=== PATIENT | male | born 1985 | race Two or more races ===

== ENCOUNTER 2025-07-20 15:48 | Inpatient (IN) | payer OTHER ==
[2025-07-20 15:30] VITALS: BP 108/79; PULSE 88; RESP 18; TEMP 98.2; O2SAT 100
[2025-07-20] MEDS ORDERED: ALBUTEROL SULFATE 2.5 MG/0.5 ML NEB SOLUTION NEB PRN (16:00)
[2025-07-20] MEDS ORDERED: BISACODYL 10 MG RECTAL RECTAL SUPPOSITORY PR PRN (16:00)
[2025-07-20] MEDS ORDERED: ONDANSETRON HCL 4 MG/2 ML VIAL IVP PRN (16:00)
[2025-07-20] MEDS ORDERED: MORPHINE SULFATE 4 MG/ML SYRINGE IVP PRN (16:00)
[2025-07-20] MEDS ORDERED: MAGNESIUM HYDROXIDE SUSPENSION 30 ML UDCUP PO PRN (16:00)
[2025-07-20] MEDS ORDERED: IPRATROPIUM BROMIDE 0.5 MG/2.5 ML NEB SOLUTION NEB PRN (16:00)
[2025-07-20] MEDS ORDERED: ACETAMINOPHEN 325 MG TABLET PO PRN (16:00)
[2025-07-20] MEDS ORDERED: ATOR40TA28 PO (17:49)
[2025-07-20] MEDS ORDERED: DICL100G60 TP (17:49)
[2025-07-20] MEDS ORDERED: PRED-549 PO (17:49)
[2025-07-20] MEDS ORDERED: TACR1CAP12 PO (17:49)
[2025-07-20] MEDS ORDERED: MULT-14 PO (17:49)
[2025-07-20] MEDS ORDERED: BUME1TAB50 PO (17:49)
[2025-07-20] MEDS ORDERED: TRAZ-252 PO (17:49)
[2025-07-20] MEDS ORDERED: FERR325T27 PO (17:49)
[2025-07-20] MEDS ORDERED: ONDA-104 PO (17:49)
[2025-07-20] MEDS ORDERED: AMLO2.5T96 PO (17:49)
[2025-07-20] MEDS ORDERED: PRED-554 PO (17:49)
[2025-07-20] MEDS ORDERED: PREDAOS OD (17:49)
[2025-07-20] MEDS ORDERED: DORZ1DRO7 OU (17:49)
[2025-07-20] MEDS ORDERED: MYCO250C27 PO (17:49)
[2025-07-20] MEDS ORDERED: HYDR25TA83 PO (17:49)
[2025-07-20] MEDS ORDERED: GABA-1181 PO (17:49)
[2025-07-20] MEDS ORDERED: XALA2.5OS OU (17:49)
[2025-07-20] MEDS ORDERED: ASPI-1450 PO (17:49)
[2025-07-20 19:46] VITALS: BP 100/72; PULSE 90; RESP 18; TEMP 97.7; O2SAT 96
[2025-07-20] MEDS: GABAPENTIN 300 MG CAPSULE PO SCH (21:47)
[2025-07-20] MEDS: DOCUSATE SODIUM 100 MG CAPSULE PO SCH (21:47)
[2025-07-20] MEDS: DORZOLAMIDE/TIMOLOL 2-0.5% [22.3-6.8MG/ML] 10 ML OPHTHALMIC SOLUTION OU SCH (21:48)
[2025-07-20] MEDS: TACROLIMUS 1 MG CAPSULE PO SCH (21:48)
[2025-07-20] MEDS: HEPARIN SODIUM,PORCINE 5,000 UNITS/ML VIAL SQ SCH (23:49)
[2025-07-21 04:17] VITALS: BP 104/74; PULSE 86; RESP 18; TEMP 97.5; O2SAT 100
[2025-07-21 06:22] LABS: PLATELET COUNT (AUTO) 274 K/uL (150-450); RED BLOOD CELL COUNT(AUTO) 4.61 MIL/uL (4.50-5.90); RED CELL DISTRIBUTION WIDTH 15.9 % (11.5-14.5); WHITE BLOOD COUNT (AUTO) 8.7 K/uL (4.5-11.0)
[2025-07-21 06:41] LABS: CALCIUM, TOTAL 8.6 mg/dL (8.8-10.5); CREATININE 1.07 mg/dL (0.60-1.30); GLOMERULAR FILTR. RATE CALC > 60 mL/min (>60); GLUCOSE,RANDOM 125 mg/dL (70-110); SODIUM SERUM 134 mmol/L (136-145); UREA NITROGEN, BLOOD 25 mg/dL (7-18)
[2025-07-21 07:26] VITALS: BP 122/71; PULSE 96; RESP 18; TEMP 97.7; O2SAT 100
[2025-07-21] MEDS: FERROUS SULFATE 325 MG EC TABLET PO SCH (08:36)
[2025-07-21] MEDS: ATORVASTATIN CALCIUM 40 MG TABLET PO SCH (08:37)
[2025-07-21] MEDS: PANTOPRAZOLE SODIUM 40 MG DR TABLET PO SCH (08:37)
[2025-07-21] MEDS: BUMETANIDE 1 MG TABLET PO SCH (08:38)
[2025-07-21] MEDS: PrednisoLONE ACETATE 1% 5 ML OPHTHALMIC SUSPENSION OD SCH (08:45)
[2025-07-21 15:35] VITALS: BP 107/70; PULSE 96; RESP 17; TEMP 97.7; O2SAT 99
[2025-07-21 17:11] LABS: APPEARANCE,URINE CLEAR (CLEAR); GLUCOSE, URINE (UA) NEGATIVE (NEGATIVE); LEUKOCYTE ESTERASE ,URINE NEGATIVE (NEGATIVE); NITRATE,URINE NEGATIVE (NEGATIVE); OCCULT BLOOD,URINE NEGATIVE (NEGATIVE); SPECIFIC GRAVITIY, URINE 1.006 (1.003-1.030)
[2025-07-21 17:27] LABS: SQUAMOUS EPITHELIAL CELL,UR Rare /LPF (None Seen)
[2025-07-21 19:51] VITALS: BP 98/67; PULSE 97; RESP 18; TEMP 98.2; O2SAT 100
[2025-07-21] MEDS: BRIMONIDINE TARTRATE 0.2% 5 ML OPHTHALMIC SOLUTION OU SCH (20:56)
[2025-07-21] MEDS ORDERED: DORZOLAMIDE HCL 2% 10 ML OPHTHALMIC SOLUTION OU SCH (21:00)
[2025-07-22] MEDS: ZOLPIDEM TARTRATE 5 MG TABLET PO PRN (00:50)
[2025-07-22 05:00] VITALS: BP 115/79; PULSE 85; RESP 18; TEMP 97.9; O2SAT 100
[2025-07-22 06:46] LABS: CALCIUM, TOTAL 8.6 mg/dL (8.8-10.5); CREATININE 1.32 mg/dL (0.60-1.30); GLOMERULAR FILTR. RATE CALC > 60 mL/min (>60); GLUCOSE,RANDOM 93 mg/dL (70-110); SODIUM SERUM 131 mmol/L (136-145); UREA NITROGEN, BLOOD 26 mg/dL (7-18)
[2025-07-22 09:10] VITALS: BP 108/78; PULSE 89; RESP 18; TEMP 98.2; O2SAT 100
[2025-07-22] MEDS: SODIUM CHLORIDE 0.9% 1,000 ML IV ONE (10:40)
[2025-07-22] MEDS: HYDROCODONE/ACETAMINOPHEN 5-325 MG TABLET PO PRN (14:58)
[2025-07-22 15:22] VITALS: BP 117/79; PULSE 95; RESP 18; TEMP 98.6; O2SAT 96
[2025-07-22 20:14] VITALS: BP 105/70; PULSE 87; RESP 18; TEMP 98.2; O2SAT 100
[2025-07-23 06:19] VITALS: BP 127/85; PULSE 95; RESP 18; TEMP 98.1; O2SAT 100
[2025-07-23 07:06] LABS: CALCIUM, TOTAL 8.8 mg/dL (8.8-10.5); CREATININE 1.24 mg/dL (0.60-1.30); GLOMERULAR FILTR. RATE CALC > 60 mL/min (>60); GLUCOSE,RANDOM 97 mg/dL (70-110); SODIUM SERUM 137 mmol/L (136-145); UREA NITROGEN, BLOOD 32 mg/dL (7-18)
[2025-07-23 08:05] VITALS: BP 125/82; PULSE 91; RESP 20; TEMP 99; O2SAT 100
[2025-07-23 15:21] VITALS: BP 125/83; PULSE 93; RESP 20; TEMP 99; O2SAT 100
[2025-07-23 20:22] VITALS: BP 111/83; PULSE 97; RESP 19; TEMP 98.4; O2SAT 99
[2025-07-24 04:10] VITALS: BP 119/72; PULSE 86; RESP 18; TEMP 98.2; O2SAT 100
[2025-07-24 08:37] VITALS: BP 117/77; PULSE 94; RESP 18; TEMP 98.4; O2SAT 100
[2025-07-24 16:04] VITALS: BP 123/81; PULSE 80; RESP 18; TEMP 97.5; O2SAT 100
[2025-07-24 17:17] LABS: COVID AG,FIA SOURCE NASAL SWAB
[2025-07-24 17:33] LABS: SARS-COV2 (COVID) ANTIGEN,FIA Negative (Negative)
[2025-07-24 19:12] VITALS: BP 130/91; PULSE 90; RESP 18; TEMP 98.4; O2SAT 100
[2025-07-25 04:14] VITALS: BP 112/75; PULSE 81; RESP 18; TEMP 97.8; O2SAT 99
[2025-07-25 08:00] VITALS: BP 127/86; PULSE 88; RESP 20; TEMP 98.4; O2SAT 100
[2025-07-25 16:00] VITALS: BP 137/89; PULSE 99; RESP 20; TEMP 97.9; O2SAT 100
[2025-07-25 19:12] LABS: COVID AG,FIA SOURCE NASAL SWAB
[2025-07-25 19:36] LABS: SARS-COV2 (COVID) ANTIGEN,FIA Negative (Negative)
[2025-07-25 20:12] VITALS: BP 131/86; PULSE 99; RESP 18; TEMP 98.8; O2SAT 100
== END 2025-07-25 21:58 | DRG 699 ==
LOC: 6S 15:59 → 4E 07-22 19:19
PROVIDERS: ADMIT Internal Medicine; ATTEND Internal Medicine
PROC: GZ56ZZZ Individual Psychotherapy, Supportive (ICD-10-PCS; principal; 2025-07-24)
DX: T86.12 Kidney transplant failure (principal); E87.1 Hypo-osmolality and hyponatremia; N17.8 Other acute kidney failure; I42.9 Cardiomyopathy, unspecified; F33.9 Major depressive disorder, recurrent, unspecified; I69.354 Hemiplegia and hemiparesis following cerebral infarction affecting left non-dominant side; Z94.1 Heart transplant status; R44.0 Auditory hallucinations; Z94.0 Kidney transplant status; E78.5 Hyperlipidemia, unspecified; Z20.822 Contact with and (suspected) exposure to COVID-19; E11.22 Type 2 diabetes mellitus with diabetic chronic kidney disease; H54.8 Legal blindness, as defined in USA; I12.9 Hypertensive chronic kidney disease with stage 1 through stage 4 chronic kidney disease, or unspecified chronic kidney disease; N18.9 Chronic kidney disease, unspecified; Z79.624 Long term (current) use of inhibitors of nucleotide synthesis; Z88.8 Allergy status to other drugs, medicaments and biological substances; Z79.82 Long term (current) use of aspirin; Z94.7 Corneal transplant status; Z79.899 Other long term (current) drug therapy
CPT/HCPCS: 76776; 80048; 80197; 81001; 85025; 97116; 97162; 97530; G0378; J1644; J7030; J7507; J7517

== ENCOUNTER 2025-07-25 12:42 | Inpatient (IN) | payer OTHER, MEDICAID ==
[~2025-07-25] VITALS: Ht 172.7 cm; Wt 75.3 kg
[~2025-07-25 12:42] MED LIST: AMLO2.5T96 PO; ASPI-1450 PO; ATOR40TA28 PO; BUME1TAB50 PO; DICL100G60 TP; DORZ1DRO7 OU; FERR325T27 PO; GABA-1181 PO; HYDR25TA83 PO; MULT-14 PO; MYCO250C27 PO; ONDA-104 PO; PRED-549 PO; PRED-554 PO; PREDAOS OD; TACR1CAP12 PO; TRAZ-252 PO; XALA2.5OS OU
[2025-07-25] MEDS ORDERED: PROMETHAZINE HCL 25 MG TABLET PO PRN (22:15)
[2025-07-25] MEDS ORDERED: MELATONIN 5 MG TABLET PO PRN (22:15)
[2025-07-25] MEDS ORDERED: LOPERAMIDE HCL 2 MG CAPSULE PO PRN (22:15)
[2025-07-25] MEDS ORDERED: GuaiFENesin/D-METHORPHAN [SUGAR-FREE] 200-20MG/10 ML SYRUP UDCUP PO PRN (22:15)
[2025-07-25] MEDS ORDERED: MAG HYDROX/ALUMINUM HYD/SIMETH ES 30 ML SUSPENSION UDCUP PO PRN (22:15)
[2025-07-25] MEDS ORDERED: ACETAMINOPHEN 325 MG TABLET PO PRN (22:15)
[2025-07-25] MEDS ORDERED: MAGNESIUM HYDROXIDE SUSPENSION 30 ML UDCUP PO PRN (22:15)
[2025-07-25 23:27] VITALS: BP 114/83; PULSE 79; RESP 18; TEMP 98.3; O2SAT 97
[2025-07-26] MEDS ORDERED: INFLUENZA VIRUS VACCINE TVS (6MO+) 2025-26/PF 45 MCG/0.5 ML SYRINGE IM. ONE (03:00)
[2025-07-26 06:55] LABS: PLATELET COUNT (AUTO) 274 K/uL (150-450); RED BLOOD CELL COUNT(AUTO) 4.31 MIL/uL (4.50-5.90); RED CELL DISTRIBUTION WIDTH 15.8 % (11.5-14.5); WHITE BLOOD COUNT (AUTO) 6.2 K/uL (4.5-11.0)
[2025-07-26 07:17] LABS: ASPARTATE AMINOTRANSFERASE 29 U/L (15-37); CALCIUM, TOTAL 9.0 mg/dL (8.8-10.5); CHOL/HDL RATIO 2.5 (4.2-7.3); CREATININE 1.03 mg/dL (0.60-1.30); GLOMERULAR FILTR. RATE CALC > 60 mL/min (>60); GLUCOSE,RANDOM 106 mg/dL (70-110); LDL CHOL (CALC.) 63 mg/dL (0-130); SODIUM SERUM 136 mmol/L (136-145); TOTAL PROTEIN, SERUM 7.8 g/dL (6.4-8.2); UREA NITROGEN, BLOOD 17 mg/dL (7-18)
[2025-07-26] MEDS ORDERED: ONDANSETRON 4 MG RAPDIS TABLET PO PRN (07:45)
[2025-07-26 08:37] VITALS: BP 129/90; PULSE 103; RESP 18; TEMP 97.5; O2SAT 100
[2025-07-26] MEDS: THIAMINE 100 MG TABLET PO SCH (08:41)
[2025-07-26] MEDS: MULTIVITAMINS WITH MINERALS, THERAPEUTIC TABLET PO SCH (08:41)
[2025-07-26] MEDS: FOLIC ACID 1 MG TABLET PO SCH (08:42)
[2025-07-26] MEDS: PrednisoLONE ACETATE 1% 5 ML OPHTHALMIC SUSPENSION OD SCH (08:45)
[2025-07-26] MEDS: DORZOLAMIDE/TIMOLOL 2-0.5% [22.3-6.8MG/ML] 10 ML OPHTHALMIC SOLUTION OU SCH (08:46)
[2025-07-26] MEDS: ASPIRIN 81 MG CHEWABLE TABLET PO SCH (08:48)
[2025-07-26] MEDS: ATORVASTATIN CALCIUM 40 MG TABLET PO SCH (08:49)
[2025-07-26] MEDS ORDERED: MULTIVITAMINS WITH MINERALS, THERAPEUTIC TABLET PO SCH (09:00)
[2025-07-26] MEDS: TACROLIMUS 1 MG CAPSULE PO SCH (09:16)
[2025-07-26] MEDS: BUMETANIDE 1 MG TABLET PO SCH (09:16)
[2025-07-26] MEDS: LATANOPROST 0.005% 2.5 ML OPHTHALMIC SOLUTION OU SCH (20:03)
[2025-07-26 21:53] VITALS: BP 119/74; PULSE 86; RESP 19; TEMP 98.1; O2SAT 100
[2025-07-27] MEDS: FERROUS SULFATE 325 MG EC TABLET PO SCH (06:36)
[2025-07-27 09:17] VITALS: BP 134/86; PULSE 113; RESP 18; TEMP 97.8; O2SAT 100
[2025-07-27 22:48] VITALS: BP 109/73; PULSE 108; RESP 18; TEMP 98.2; O2SAT 100
[2025-07-28 09:04] VITALS: BP 134/85; PULSE 97; RESP 18; TEMP 97.7; O2SAT 99
[2025-07-28 21:47] VITALS: BP 105/63; PULSE 92; RESP 18; TEMP 98.1; O2SAT 100
[2025-07-29 10:33] VITALS: BP 100/63; PULSE 104; RESP 18; TEMP 97.8; O2SAT 99
[2025-07-29 20:15] VITALS: BP 128/90; PULSE 104; RESP 18; TEMP 98.6; O2SAT 98
[2025-07-30 10:27] VITALS: BP 101/76; PULSE 91; RESP 17; TEMP 98.1; O2SAT 100
[2025-07-30 20:58] VITALS: BP 119/80; PULSE 90; RESP 16; TEMP 96.8; O2SAT 99
[2025-07-31 08:19] LABS: PLATELET COUNT (AUTO) 262 K/uL (150-450); RED BLOOD CELL COUNT(AUTO) 4.75 MIL/uL (4.50-5.90); RED CELL DISTRIBUTION WIDTH 16.3 % (11.5-14.5); WHITE BLOOD COUNT (AUTO) 8.1 K/uL (4.5-11.0)
[2025-07-31 08:26] LABS: CALCIUM, TOTAL 9.0 mg/dL (8.8-10.5); CREATININE 2.05 mg/dL (0.60-1.30); GLOMERULAR FILTR. RATE CALC 37.0 mL/min (>60); GLUCOSE,RANDOM 95.0 mg/dL (70-110); SODIUM SERUM 136.0 mmol/L (136-145); UREA NITROGEN, BLOOD 44.0 mg/dL (7-18)
[2025-07-31 09:15] VITALS: BP 102/72; PULSE 92; RESP 18; TEMP 97.8; O2SAT 97
[2025-07-31 20:56] VITALS: BP 94/56; PULSE 97; RESP 18; TEMP 97.5; O2SAT 99
[2025-08-01 07:19] LABS: CALCIUM, TOTAL 9.1 mg/dL (8.8-10.5); CREATININE 2.17 mg/dL (0.60-1.30); GLOMERULAR FILTR. RATE CALC 34.0 mL/min (>60); GLUCOSE,RANDOM 95.0 mg/dL (70-110); SODIUM SERUM 133.0 mmol/L (136-145); UREA NITROGEN, BLOOD 52.0 mg/dL (7-18)
[2025-08-01 07:24] LABS: PHOSPHORUS 4.4 mg/dL (2.5-4.9)
[2025-08-01 09:52] VITALS: RESP 18
[2025-08-01 20:17] VITALS: BP 114/79; PULSE 64; RESP 18; TEMP 97.9; O2SAT 95
[2025-08-01] MEDS: LURASIDONE HCL 40 MG TABLET PO SCH (21:18)
[2025-08-02 09:17] LABS: CALCIUM, TOTAL 9.1 mg/dL (8.8-10.5); CREATININE 3.15 mg/dL (0.60-1.30); GLOMERULAR FILTR. RATE CALC 22.0 mL/min (>60); GLUCOSE,RANDOM 104.0 mg/dL (70-110); SODIUM SERUM 135.0 mmol/L (136-145); UREA NITROGEN, BLOOD 62.0 mg/dL (7-18)
[2025-08-02 13:23] VITALS: BP 98/71; PULSE 100; RESP 18; TEMP 97.7; O2SAT 100
[2025-08-02] MEDS ORDERED: MODA100T65 PO (13:57)
[2025-08-02] MEDS ORDERED: MELA5TAB40 PO (13:57)
[2025-08-02] MEDS ORDERED: QUET25TA36 PO (13:57)
[2025-08-02] MEDS ORDERED: LURA40TA2 PO (13:57)
[2025-08-02] MEDS ORDERED: PARO10TA71 PO (13:57)
[2025-08-02 20:30] VITALS: BP 110/67; PULSE 102; RESP 18; TEMP 98.5; O2SAT 100
[2025-08-03 00:30] VITALS: BP 116/74; PULSE 104; RESP 19; TEMP 98.5; O2SAT 98
[2025-08-04] MEDS ORDERED: DORZ10DR10 OU (12:05)
[2025-08-04] MEDS ORDERED: BRIM5DRO9 OU (12:05)
== END 2025-08-03 00:45 | disposition short-term general hospital (02) | DRG 885 ==
LOC: 3EI 21:41
PROVIDERS: ADMIT Psychiatry & Neurology Psychiatry; ATTEND Psychiatry & Neurology Psychiatry
PROC: GZHZZZZ Group Psychotherapy (ICD-10-PCS; principal; 2025-07-25)
PROC: GZ58ZZZ Individual Psychotherapy, Cognitive-Behavioral (ICD-10-PCS; 2025-07-25)
PROC: GZ56ZZZ Individual Psychotherapy, Supportive (ICD-10-PCS; 2025-07-25)
DX: F33.2 Major depressive disorder, recurrent severe without psychotic features (principal); I69.354 Hemiplegia and hemiparesis following cerebral infarction affecting left non-dominant side; I42.0 Dilated cardiomyopathy; N25.81 Secondary hyperparathyroidism of renal origin; Z94.1 Heart transplant status; Z59.00 Homelessness unspecified; R45.851 Suicidal ideations; I10 Essential (primary) hypertension; E78.5 Hyperlipidemia, unspecified; E11.9 Type 2 diabetes mellitus without complications; G35.D Multiple sclerosis, unspecified; H54.8 Legal blindness, as defined in USA; F10.20 Alcohol dependence, uncomplicated; F41.0 Panic disorder [episodic paroxysmal anxiety]; F41.1 Generalized anxiety disorder; Z63.72 Alcoholism and drug addiction in family; Z79.60 Long term (current) use of unspecified immunomodulators and immunosuppressants; Z81.1 Family history of alcohol abuse and dependence; Z94.7 Corneal transplant status
CPT/HCPCS: 76776; 80048; 80053; 80061; 82140; 83036; 83735; 84100; 84439; 84443; 85025; 86592; 87081; J7507; J7517

== ENCOUNTER 2025-08-03 00:45 | Inpatient (IN) | payer OTHER ==
[~2025-08-03] VITALS: Ht 165.1 cm; Wt 76.6 kg
[~2025-08-03 00:45] MED LIST changes: +LURA40TA2 PO; +MELA5TAB40 PO; +MODA100T65 PO; +PARO10TA71 PO; +QUET25TA36 PO
[2025-08-03 00:50] VITALS: BP 116/80; PULSE 99; RESP 19; TEMP 98.2; O2SAT 99
[2025-08-03 04:00] VITALS: BP 115/79; PULSE 99; RESP 18; TEMP 98; O2SAT 99
[2025-08-03 06:49] LABS: PLATELET COUNT (AUTO) 265 K/uL (150-450); RED BLOOD CELL COUNT(AUTO) 4.85 MIL/uL (4.50-5.90); RED CELL DISTRIBUTION WIDTH 16.3 % (11.5-14.5); WHITE BLOOD COUNT (AUTO) 9.9 K/uL (4.5-11.0)
[2025-08-03 06:59] LABS: CALCIUM, TOTAL 9.1 mg/dL (8.8-10.5); CREATININE 2.67 mg/dL (0.60-1.30); GLOMERULAR FILTR. RATE CALC 27.0 mL/min (>60); GLUCOSE,RANDOM 93.0 mg/dL (70-110); SODIUM SERUM 137.0 mmol/L (136-145); UREA NITROGEN, BLOOD 70.0 mg/dL (7-18)
[2025-08-03] MEDS: SODIUM CHLORIDE 0.9% 1,000 ML IV ONE ×2 (07:58)
[2025-08-03] MEDS ORDERED: SODIUM CHLORIDE 0.9% 500 ML IV ONE (11:38)
[2025-08-03] MEDS: POTASSIUM CHL 10 MEQ/WATER 50 ML IV SCH (11:59)
[2025-08-03] MEDS: TACROLIMUS 1 MG CAPSULE PO SCH (12:05)
[2025-08-03 12:42] VITALS: BP 127/89; PULSE 97; RESP 18; TEMP 98.2; O2SAT 98
[2025-08-03] MEDS: DORZOLAMIDE/TIMOLOL 2-0.5% [22.3-6.8MG/ML] 10 ML OPHTHALMIC SOLUTION OU SCH (15:26)
[2025-08-03] MEDS: PrednisoLONE ACETATE 1% 5 ML OPHTHALMIC SUSPENSION OD SCH (15:26)
[2025-08-03] MEDS: BRIMONIDINE TARTRATE 0.2% 5 ML OPHTHALMIC SOLUTION OU SCH (15:28)
[2025-08-03 16:44] VITALS: BP 116/82; PULSE 91; RESP 18; TEMP 97.9; O2SAT 100
[2025-08-03 20:02] VITALS: BP 116/78; PULSE 92; RESP 18; TEMP 98.1; O2SAT 100
[2025-08-03] MEDS: GABAPENTIN 300 MG CAPSULE PO SCH (20:43)
[2025-08-03] MEDS: LATANOPROST 0.005% 2.5 ML OPHTHALMIC SOLUTION OU SCH (20:44)
[2025-08-04 04:11] VITALS: BP 129/85; PULSE 101; RESP 18; TEMP 97.9; O2SAT 98
[2025-08-04 06:33] LABS: PLATELET COUNT (AUTO) 274 K/uL (150-450); RED BLOOD CELL COUNT(AUTO) 4.95 MIL/uL (4.50-5.90); RED CELL DISTRIBUTION WIDTH 16.4 % (11.5-14.5); WHITE BLOOD COUNT (AUTO) 9.3 K/uL (4.5-11.0)
[2025-08-04 06:56] LABS: CALCIUM, TOTAL 9.3 mg/dL (8.8-10.5); CREATININE 1.8 mg/dL (0.60-1.30); GLOMERULAR FILTR. RATE CALC 42.0 mL/min (>60); GLUCOSE,RANDOM 105.0 mg/dL (70-110); SODIUM SERUM 135.0 mmol/L (136-145); UREA NITROGEN, BLOOD 58.0 mg/dL (7-18)
[2025-08-04 07:00] LABS: PHOSPHORUS 2.5 mg/dL (2.5-4.9)
[2025-08-04] MEDS: MULTIVITAMINS, THERAPEUTIC TABLET PO SCH (08:38)
[2025-08-04] MEDS: ASPIRIN 81 MG CHEWABLE TABLET PO SCH (08:38)
[2025-08-04] MEDS: ATORVASTATIN CALCIUM 40 MG TABLET PO SCH (08:39)
[2025-08-04] MEDS: FERROUS SULFATE 325 MG EC TABLET PO SCH (08:39)
[2025-08-04 09:34] LABS: APPEARANCE,URINE CLEAR (CLEAR); GLUCOSE, URINE (UA) NEGATIVE (NEGATIVE); LEUKOCYTE ESTERASE ,URINE NEGATIVE (NEGATIVE); NITRATE,URINE NEGATIVE (NEGATIVE); OCCULT BLOOD,URINE NEGATIVE (NEGATIVE); SPECIFIC GRAVITIY, URINE 1.024 (1.003-1.030)
[2025-08-04] MEDS ORDERED: SODIUM CHLORIDE 0.9% 1,000 ML ONE (11:49)
[2025-08-04] MEDS: SODIUM CHLORIDE 0.9% 1,000 ML IV SCH (12:00)
[2025-08-04] MEDS ORDERED: BRIM5DRO9 OU (12:05)
[2025-08-04] MEDS ORDERED: DORZ10DR10 OU (12:05)
[2025-08-04 17:33] VITALS: BP 134/99; PULSE 95; RESP 18; TEMP 98.1; O2SAT 99
[2025-08-04 20:00] VITALS: BP 120/87; PULSE 106; RESP 18; TEMP 97.5; O2SAT 100
[2025-08-05] MEDS: LORazepam 2 MG/ML VIAL IVP PRN (03:05)
[2025-08-05 04:00] VITALS: BP 117/82; PULSE 98; RESP 18; TEMP 98.1; O2SAT 98
[2025-08-05 07:42] VITALS: BP 111/78; PULSE 81; RESP 18; TEMP 97.2; O2SAT 100
[2025-08-05 09:31] LABS: PLATELET COUNT (AUTO) 228 K/uL (150-450); RED BLOOD CELL COUNT(AUTO) 4.48 MIL/uL (4.50-5.90); RED CELL DISTRIBUTION WIDTH 16.2 % (11.5-14.5); WHITE BLOOD COUNT (AUTO) 6.7 K/uL (4.5-11.0)
[2025-08-05 09:39] LABS: CALCIUM, TOTAL 8.8 mg/dL (8.8-10.5); CREATININE 1.52 mg/dL (0.60-1.30); GLOMERULAR FILTR. RATE CALC 52.0 mL/min (>60); GLUCOSE,RANDOM 112.0 mg/dL (70-110); SODIUM SERUM 140.0 mmol/L (136-145); UREA NITROGEN, BLOOD 45.0 mg/dL (7-18)
[2025-08-05 09:43] LABS: PHOSPHORUS 2.6 mg/dL (2.5-4.9)
[2025-08-05] MEDS: POTASSIUM CHLORIDE 20 MEQ ER TABLET PO ONE (10:53)
[2025-08-05 15:21] VITALS: BP 118/79; PULSE 104; RESP 18; TEMP 98.4; O2SAT 95
[2025-08-05 19:52] VITALS: BP 133/87; PULSE 91; RESP 18; TEMP 98.1; O2SAT 98
[2025-08-06 04:34] VITALS: BP 111/93; PULSE 91; RESP 18; TEMP 97.5; O2SAT 100
[2025-08-06 08:20] VITALS: BP 114/81; PULSE 82; RESP 18; TEMP 96.9; O2SAT 100
[2025-08-06 08:28] LABS: PLATELET COUNT (AUTO) 196 K/uL (150-450); RED BLOOD CELL COUNT(AUTO) 4.37 MIL/uL (4.50-5.90); RED CELL DISTRIBUTION WIDTH 16.4 % (11.5-14.5); WHITE BLOOD COUNT (AUTO) 6.7 K/uL (4.5-11.0)
[2025-08-06 08:36] LABS: CALCIUM, TOTAL 8.3 mg/dL (8.8-10.5); CREATININE 1.26 mg/dL (0.60-1.30); GLOMERULAR FILTR. RATE CALC > 60 mL/min (>60); GLUCOSE,RANDOM 90 mg/dL (70-110); SODIUM SERUM 138 mmol/L (136-145); UREA NITROGEN, BLOOD 33 mg/dL (7-18)
[2025-08-06] MEDS ORDERED: POTASSIUM CHLORIDE 10% 40 MEQ/30 ML LIQUID UDCUP PO ONE (13:30)
[2025-08-06 15:30] VITALS: BP 121/87; PULSE 94; RESP 18; TEMP 98.1; O2SAT 99
[2025-08-06 20:00] VITALS: BP 109/60; PULSE 90; RESP 18; TEMP 98; O2SAT 100
[2025-08-06 21:00] VITALS: BP 115/72; PULSE 82; RESP 18; O2SAT 100
[2025-08-07 04:00] VITALS: BP 110/69; PULSE 85; RESP 18; TEMP 98.4; O2SAT 100
[2025-08-07 07:44] VITALS: BP 115/84; PULSE 91; RESP 18; TEMP 97.7; O2SAT 100
[2025-08-07 16:16] VITALS: BP 100/78; PULSE 91; RESP 18; TEMP 98.1; O2SAT 100
[2025-08-07 19:54] VITALS: BP 106/78; PULSE 93; RESP 19; TEMP 97.9; O2SAT 100
[2025-08-08 06:35] VITALS: BP 124/82; PULSE 91; RESP 18; TEMP 98.1; O2SAT 96
[2025-08-08 07:48] VITALS: BP 110/80; PULSE 88; RESP 18; TEMP 98; O2SAT 100
[2025-08-08 16:44] VITALS: BP 112/78; PULSE 82; RESP 18; TEMP 98; O2SAT 100
[2025-08-08 19:30] VITALS: BP 122/99; PULSE 87; RESP 18; TEMP 99.5; O2SAT 99
[2025-08-09 04:00] VITALS: BP 121/84; PULSE 97; RESP 18; TEMP 99.1; O2SAT 100
[2025-08-09 08:09] VITALS: BP 117/73; PULSE 89; RESP 18; TEMP 98.6; O2SAT 99
[2025-08-09 08:54] LABS: CALCIUM, TOTAL 8.6 mg/dL (8.8-10.5); CREATININE 1.20 mg/dL (0.60-1.30); GLOMERULAR FILTR. RATE CALC > 60 mL/min (>60); GLUCOSE,RANDOM 96 mg/dL (70-110); SODIUM SERUM 138 mmol/L (136-145); UREA NITROGEN, BLOOD 12 mg/dL (7-18)
[2025-08-09] MEDS ORDERED: SODIUM CHLORIDE 0.9% 500 ML IV ONE (13:50)
[2025-08-09] MEDS: MAGNESIUM SULFATE 2 GM/WATER 50 ML IV ONE (13:59)
[2025-08-09 16:00] VITALS: BP 129/90; PULSE 89; RESP 18; TEMP 97.3; O2SAT 99
[2025-08-09 20:00] VITALS: BP 102/72; PULSE 92; RESP 18; TEMP 97.5; O2SAT 100
[2025-08-10 05:20] VITALS: BP 114/83; PULSE 95; RESP 18; TEMP 97.9; O2SAT 98
[2025-08-10 12:38] LABS: COVID AG,FIA SOURCE NASAL SWAB
[2025-08-10 13:08] LABS: SARS-COV2 (COVID) ANTIGEN,FIA Negative (Negative)
== END 2025-08-10 14:54 | DRG 683 ==
LOC: 6S 00:45
PROVIDERS: ADMIT Internal Medicine; ATTEND Internal Medicine
DX: N17.9 Acute kidney failure, unspecified (principal); D84.9 Immunodeficiency, unspecified; E87.1 Hypo-osmolality and hyponatremia; I69.354 Hemiplegia and hemiparesis following cerebral infarction affecting left non-dominant side; I42.9 Cardiomyopathy, unspecified; G45.9 Transient cerebral ischemic attack, unspecified; R45.851 Suicidal ideations; E87.6 Hypokalemia; E78.5 Hyperlipidemia, unspecified; I10 Essential (primary) hypertension; F41.9 Anxiety disorder, unspecified; E83.42 Hypomagnesemia; Z20.822 Contact with and (suspected) exposure to COVID-19; E11.9 Type 2 diabetes mellitus without complications; F31.9 Bipolar disorder, unspecified; G35.D Multiple sclerosis, unspecified; Z79.624 Long term (current) use of inhibitors of nucleotide synthesis; Z94.1 Heart transplant status; Z79.82 Long term (current) use of aspirin; Z94.7 Corneal transplant status; Z79.899 Other long term (current) drug therapy
CPT/HCPCS: 80048; 80197; 81003; 83735; 84100; 85025; J2060; J3475; J3480; J7030; J7040; J7507; J7517

== ENCOUNTER 2025-08-10 08:46 | Inpatient (IN) | payer OTHER, MEDICAID ==
[~2025-08-10] VITALS: Ht 165.1 cm; Wt 73.9 kg
[~2025-08-10 08:46] MED LIST changes: +BRIM5DRO9 OU; +DORZ10DR10 OU; -DORZ1DRO7 OU; -PARO10TA71 PO; -PRED-554 PO
[2025-08-10] MEDS ORDERED: OLANZapine 5 MG RAPDIS TABLET PO PRN (10:00)
[2025-08-10] MEDS ORDERED: ZOLPIDEM TARTRATE 10 MG TABLET PO PRN ×2 (10:00→16:45)
[2025-08-10 15:15] VITALS: BP 114/78; PULSE 94; RESP 16; TEMP 97.7; O2SAT 100
[2025-08-10] MEDS ORDERED: PROMETHAZINE HCL 25 MG TABLET PO PRN (16:45)
[2025-08-10] MEDS ORDERED: MAG HYDROX/ALUMINUM HYD/SIMETH ES 30 ML SUSPENSION UDCUP PO PRN (16:45)
[2025-08-10] MEDS ORDERED: MAGNESIUM HYDROXIDE SUSPENSION 30 ML UDCUP PO PRN (16:45)
[2025-08-10] MEDS ORDERED: LOPERAMIDE HCL 2 MG CAPSULE PO PRN ×2 (16:45)
[2025-08-10] MEDS ORDERED: GuaiFENesin/D-METHORPHAN [SUGAR-FREE] 200-20MG/10 ML SYRUP UDCUP PO PRN (16:45)
[2025-08-10] MEDS ORDERED: ONDANSETRON 4 MG TABLET PO PRN (17:00)
[2025-08-10] MEDS ORDERED: NICOTINE 14 MG/24 HOUR PATCH TD PRN (17:00)
[2025-08-10] MEDS: THIAMINE 100 MG TABLET PO SCH (18:00)
[2025-08-10] MEDS: TACROLIMUS 1 MG CAPSULE PO SCH (18:00)
[2025-08-10] MEDS: GABAPENTIN 300 MG CAPSULE PO SCH (18:00)
[2025-08-10] MEDS: CYANOCOBALAMIN 1,000 MCG/ML VIAL IM ONE (18:03)
[2025-08-10] MEDS: DORZOLAMIDE/TIMOLOL 2-0.5% [22.3-6.8MG/ML] 10 ML OPHTHALMIC SOLUTION OU SCH (18:03)
[2025-08-10] MEDS: BRIMONIDINE TARTRATE 0.2% 5 ML OPHTHALMIC SOLUTION OU SCH (18:03)
[2025-08-10 20:00] VITALS: BP 124/67; PULSE 100; RESP 18; TEMP 97.5; O2SAT 100
[2025-08-10] MEDS: LATANOPROST 0.005% 2.5 ML OPHTHALMIC SOLUTION OU SCH (20:30)
[2025-08-10] MEDS: LURASIDONE HCL 60 MG TABLET PO SCH (20:30)
[2025-08-11] MEDS: FERROUS SULFATE 325 MG EC TABLET PO SCH (06:31)
[2025-08-11 08:01] LABS: PLATELET COUNT (AUTO) 216 K/uL (150-450); RED BLOOD CELL COUNT(AUTO) 4.40 MIL/uL (4.50-5.90); RED CELL DISTRIBUTION WIDTH 17.2 % (11.5-14.5); WHITE BLOOD COUNT (AUTO) 6.2 K/uL (4.5-11.0)
[2025-08-11 08:34] LABS: ASPARTATE AMINOTRANSFERASE 12.0 U/L (15-37); CALCIUM, TOTAL 8.5 mg/dL (8.8-10.5); CREATININE 1.34 mg/dL (0.60-1.30); GLOMERULAR FILTR. RATE CALC 60.0 mL/min (>60); GLUCOSE,RANDOM 98.0 mg/dL (70-110); SODIUM SERUM 135.0 mmol/L (136-145); TOTAL PROTEIN, SERUM 7.1 g/dL (6.4-8.2); UREA NITROGEN, BLOOD 18.0 mg/dL (7-18)
[2025-08-11] MEDS: PrednisoLONE ACETATE 1% 5 ML OPHTHALMIC SUSPENSION OD SCH (09:05)
[2025-08-11] MEDS: ATORVASTATIN CALCIUM 40 MG TABLET PO SCH (09:07)
[2025-08-11] MEDS: NALTREXONE HCL 50 MG TABLET PO SCH (09:09)
[2025-08-11] MEDS: FOLIC ACID 1 MG TABLET PO SCH (09:09)
[2025-08-11] MEDS: ASPIRIN 81 MG CHEWABLE TABLET PO SCH (09:09)
[2025-08-11] MEDS: MULTIVITAMINS WITH MINERALS, THERAPEUTIC TABLET PO SCH (09:09)
[2025-08-11 09:35] LABS: CHOL/HDL RATIO 3.1 (4.2-7.3); LDL CHOL (CALC.) 60.0 mg/dL (0-130)
[2025-08-11 09:59] VITALS: BP 112/74; PULSE 97; RESP 18; O2SAT 97
[2025-08-11] MEDS ORDERED: TACROLIMUS 1 MG CAPSULE PO SCH (17:00)
[2025-08-11] MEDS: TACROLIMUS 0.5 MG CAPSULE PO SCH (17:27)
[2025-08-11 20:13] VITALS: BP 98/61; PULSE 101; RESP 18; TEMP 97.3; O2SAT 99
[2025-08-11] MEDS: GABAPENTIN 400 MG CAPSULE PO SCH (21:00)
[2025-08-11] MEDS: LURASIDONE HCL 80 MG TABLET PO SCH (21:00)
[2025-08-12 10:00] LABS: CALCIUM, TOTAL 8.9 mg/dL (8.8-10.5); CREATININE 1.39 mg/dL (0.60-1.30); GLOMERULAR FILTR. RATE CALC 57.0 mL/min (>60); GLUCOSE,RANDOM 103.0 mg/dL (70-110); SODIUM SERUM 136.0 mmol/L (136-145); UREA NITROGEN, BLOOD 22.0 mg/dL (7-18)
[2025-08-12 10:40] VITALS: BP 112/76; PULSE 89; RESP 18; TEMP 97.2; O2SAT 98
[2025-08-12 21:47] VITALS: BP 115/81; PULSE 67; RESP 19; TEMP 98.5; O2SAT 100
[2025-08-13 08:37] VITALS: BP 111/67; PULSE 89; RESP 16; TEMP 97.8; O2SAT 100
[2025-08-13 20:00] VITALS: BP 110/82; PULSE 88; RESP 19; TEMP 98.5; O2SAT 99
[2025-08-14 08:55] LABS: CALCIUM, TOTAL 8.7 mg/dL (8.8-10.5); CREATININE 1.16 mg/dL (0.60-1.30); GLOMERULAR FILTR. RATE CALC > 60 mL/min (>60); GLUCOSE,RANDOM 120 mg/dL (70-110); SODIUM SERUM 136 mmol/L (136-145); UREA NITROGEN, BLOOD 15 mg/dL (7-18)
[2025-08-14 08:57] LABS: PHOSPHORUS 3.2 mg/dL (2.5-4.9)
[2025-08-14 15:23] VITALS: BP 122/86; PULSE 90; RESP 19; TEMP 97.8; O2SAT 100
[2025-08-14 20:00] VITALS: BP 106/74; PULSE 100; RESP 18; TEMP 97.7; O2SAT 100
[2025-08-15 10:56] VITALS: BP 99/69; PULSE 86; RESP 17; TEMP 97; O2SAT 99
[2025-08-15 20:09] VITALS: BP 90/58; PULSE 94; RESP 18; TEMP 98.4; O2SAT 100
[2025-08-16 07:33] LABS: CALCIUM, TOTAL 8.2 mg/dL (8.8-10.5); CREATININE 1.24 mg/dL (0.60-1.30); GLOMERULAR FILTR. RATE CALC > 60 mL/min (>60); GLUCOSE,RANDOM 98 mg/dL (70-110); PHOSPHORUS 3.2 mg/dL (2.5-4.9); SODIUM SERUM 135 mmol/L (136-145); UREA NITROGEN, BLOOD 19 mg/dL (7-18)
[2025-08-16 08:51] VITALS: BP 98/65; PULSE 105; RESP 18; TEMP 98.9; O2SAT 100
[2025-08-16] MEDS: MAGNESIUM OXIDE 400 MG TABLET PO ONE (09:55)
[2025-08-16 21:38] VITALS: BP 120/63; PULSE 100; RESP 16; TEMP 98; O2SAT 100
[2025-08-17 08:00] VITALS: BP 106/77; PULSE 88; RESP 17; TEMP 98.6; O2SAT 98
[2025-08-17 20:15] VITALS: BP 119/85; PULSE 87; RESP 18; TEMP 98; O2SAT 97
[2025-08-18 08:40] VITALS: BP 110/80; PULSE 82; RESP 17; O2SAT 98
[2025-08-18 22:12] VITALS: BP 97/61; PULSE 79; RESP 18; TEMP 98; O2SAT 98
[2025-08-19 08:59] LABS: PLATELET COUNT (AUTO) 212 K/uL (150-450); RED BLOOD CELL COUNT(AUTO) 4.17 MIL/uL (4.50-5.90); RED CELL DISTRIBUTION WIDTH 17.0 % (11.5-14.5); WHITE BLOOD COUNT (AUTO) 5.0 K/uL (4.5-11.0)
[2025-08-19 09:04] LABS: CALCIUM, TOTAL 8.6 mg/dL (8.8-10.5); CREATININE 1.21 mg/dL (0.60-1.30); GLOMERULAR FILTR. RATE CALC > 60 mL/min (>60); GLUCOSE,RANDOM 119 mg/dL (70-110); SODIUM SERUM 131 mmol/L (136-145); UREA NITROGEN, BLOOD 14 mg/dL (7-18)
[2025-08-19 09:39] VITALS: BP 118/79; PULSE 92; RESP 18; O2SAT 98
[2025-08-19 09:54] LABS: PHOSPHORUS 3.0 mg/dL (2.5-4.9)
[2025-08-19] MEDS: SODIUM CHLORIDE 1 GM TABLET PO SCH (11:22)
[2025-08-19] MEDS: TACROLIMUS 0.5 MG CAPSULE PO SCH (20:46)
[2025-08-19 21:13] VITALS: BP 89/65; PULSE 78; RESP 18; TEMP 98.2; O2SAT 100
[2025-08-20 08:15] VITALS: BP 100/68; PULSE 63; RESP 17; TEMP 98; O2SAT 98
[2025-08-20 21:16] VITALS: BP 111/76; PULSE 88; RESP 19; TEMP 98; O2SAT 100
[2025-08-21 09:26] LABS: CALCIUM, TOTAL 8.7 mg/dL (8.8-10.5); CREATININE 1.19 mg/dL (0.60-1.30); GLOMERULAR FILTR. RATE CALC > 60 mL/min (>60); GLUCOSE,RANDOM 148 mg/dL (70-110); SODIUM SERUM 132 mmol/L (136-145); UREA NITROGEN, BLOOD 11 mg/dL (7-18)
[2025-08-21 09:30] VITALS: BP 115/74; PULSE 95; RESP 18; TEMP 98.9; O2SAT 98
[2025-08-21] MEDS: TACROLIMUS 0.5 MG CAPSULE PO SCH (19:00)
[2025-08-21 21:04] VITALS: BP 103/81; PULSE 72; RESP 18; TEMP 97.7; O2SAT 100
[2025-08-22 09:43] VITALS: BP 108/61; PULSE 99; RESP 17; TEMP 97.5; O2SAT 96
[2025-08-22] MEDS: GABAPENTIN 100 MG CAPSULE PO SCH (17:54)
[2025-08-22 21:17] VITALS: BP 123/94; PULSE 87; RESP 18; TEMP 97.4; O2SAT 99
[2025-08-23 08:12] LABS: CREATININE 0.92 mg/dL (0.60-1.30); GLUCOSE,RANDOM 94 mg/dL (70-110); SODIUM SERUM 137 mmol/L (136-145); UREA NITROGEN, BLOOD 10 mg/dL (7-18)
[2025-08-23 08:13] LABS: CALCIUM, TOTAL 8.9 mg/dL (8.8-10.5); GLOMERULAR FILTR. RATE CALC > 60 mL/min (>60)
[2025-08-23 09:27] VITALS: BP 133/85; PULSE 89; RESP 19; TEMP 98.3; O2SAT 100
[2025-08-23] MEDS: ACETAMINOPHEN 325 MG TABLET PO PRN (09:30)
[2025-08-23 10:30] VITALS: RESP 17
[2025-08-23 20:00] VITALS: BP 122/84; PULSE 94; RESP 18; TEMP 97.6; O2SAT 98
[2025-08-24 10:53] VITALS: BP 116/81; PULSE 73; RESP 18; TEMP 98.6; O2SAT 100
[2025-08-24] MEDS ORDERED: PARO10TA71 PO (10:59)
[2025-08-24] MEDS ORDERED: QUET25TA36 PO (10:59)
[2025-08-24] MEDS ORDERED: LURA80TA2 PO (10:59)
[2025-08-24] MEDS ORDERED: QUET200T30 PO (10:59)
[2025-08-24] MEDS ORDERED: NALT50TA33 PO (10:59)
[2025-08-24] MEDS ORDERED: GABA-1216 PO (10:59)
[2025-08-24 20:09] VITALS: BP 120/94; PULSE 84; RESP 18; TEMP 98.1; O2SAT 98
[2025-08-25 08:13] VITALS: BP 120/92; PULSE 94; RESP 18; TEMP 98.8; O2SAT 100
[2025-08-25] MEDS: GABAPENTIN 100 MG CAPSULE PO SCH (16:49)
[2025-08-25] MEDS: TACROLIMUS 1 MG CAPSULE PO SCH (20:19)
[2025-08-25] MEDS: ZALEPLON 5 MG CAPSULE PO SCH (20:19)
[2025-08-25] MEDS: LURASIDONE HCL 40 MG TABLET PO SCH (20:19)
[2025-08-25 20:48] VITALS: BP 118/80; PULSE 82; RESP 18; TEMP 97; O2SAT 99
[2025-08-26 07:02] LABS: CALCIUM, TOTAL 8.9 mg/dL (8.8-10.5); CREATININE 1.03 mg/dL (0.60-1.30); GLOMERULAR FILTR. RATE CALC > 60 mL/min (>60); GLUCOSE,RANDOM 87 mg/dL (70-110); SODIUM SERUM 131 mmol/L (136-145); UREA NITROGEN, BLOOD 12 mg/dL (7-18)
[2025-08-26 10:26] VITALS: BP 104/81; PULSE 99; RESP 18; TEMP 98.8; O2SAT 98
[2025-08-26 23:16] VITALS: BP 146/95; PULSE 86; RESP 17; TEMP 97.2; O2SAT 97
[2025-08-27 09:10] VITALS: BP 119/85; PULSE 89; RESP 18; TEMP 99; O2SAT 99
[2025-08-27 20:07] VITALS: RESP 16
[2025-08-28 08:44] LABS: PHOSPHORUS 3.2 mg/dL (2.5-4.9)
[2025-08-28 08:45] LABS: CALCIUM, TOTAL 8.4 mg/dL (8.8-10.5); CREATININE 0.86 mg/dL (0.60-1.30); GLOMERULAR FILTR. RATE CALC > 60 mL/min (>60); GLUCOSE,RANDOM 88 mg/dL (70-110); SODIUM SERUM 131 mmol/L (136-145); UREA NITROGEN, BLOOD 13 mg/dL (7-18)
[2025-08-28 09:34] VITALS: BP 116/81; PULSE 87; RESP 16; TEMP 98; O2SAT 96
[2025-08-28] MEDS: MAGNESIUM OXIDE 400 MG TABLET PO ONE (16:14)
[2025-08-28 21:53] VITALS: BP 133/82; PULSE 88; RESP 18; TEMP 97.6; O2SAT 100
[2025-08-29 09:50] VITALS: BP 124/92; PULSE 79; RESP 16; TEMP 97.9; O2SAT 100
[2025-08-29 21:35] VITALS: BP 123/94; PULSE 81; RESP 16; TEMP 98.3; O2SAT 100
[2025-08-30 07:22] LABS: CALCIUM, TOTAL 9.0 mg/dL (8.8-10.5); CREATININE 1.02 mg/dL (0.60-1.30); GLOMERULAR FILTR. RATE CALC > 60 mL/min (>60); GLUCOSE,RANDOM 92 mg/dL (70-110); SODIUM SERUM 131 mmol/L (136-145); UREA NITROGEN, BLOOD 12 mg/dL (7-18)
[2025-08-30 08:20] VITALS: BP 135/87; PULSE 89; RESP 18; TEMP 97.9; O2SAT 98
[2025-08-30] MEDS: LURASIDONE HCL 60 MG TABLET PO SCH (20:30)
[2025-08-30 22:20] VITALS: BP 113/83; PULSE 90; RESP 18; TEMP 98.2; O2SAT 100
[2025-08-31 08:07] VITALS: BP 119/81; PULSE 86; RESP 17; TEMP 97; O2SAT 99
[2025-08-31 21:40] VITALS: BP 119/75; PULSE 81; RESP 18; O2SAT 100
[2025-09-01 08:33] LABS: CALCIUM, TOTAL 9.2 mg/dL (8.8-10.5); CREATININE 0.93 mg/dL (0.60-1.30); GLOMERULAR FILTR. RATE CALC > 60 mL/min (>60); GLUCOSE,RANDOM 100 mg/dL (70-110); SODIUM SERUM 129 mmol/L (136-145); UREA NITROGEN, BLOOD 10 mg/dL (7-18)
[2025-09-01 08:37] LABS: PHOSPHORUS 3.2 mg/dL (2.5-4.9)
[2025-09-01 09:43] VITALS: BP 121/91; PULSE 64; RESP 18; TEMP 97.5; O2SAT 98
[2025-09-01] MEDS ORDERED: ZALE5CAP6 PO (16:58)
[2025-09-01 20:47] VITALS: BP 123/86; PULSE 86; RESP 18; TEMP 97.6; O2SAT 100
[2025-09-02 08:22] LABS: CALCIUM, TOTAL 8.8 mg/dL (8.8-10.5); CREATININE 1.05 mg/dL (0.60-1.30); GLOMERULAR FILTR. RATE CALC > 60 mL/min (>60); GLUCOSE,RANDOM 105 mg/dL (70-110); SODIUM SERUM 127 mmol/L (136-145); UREA NITROGEN, BLOOD 10 mg/dL (7-18)
[2025-09-02 08:37] VITALS: BP 104/74; PULSE 89; RESP 17; TEMP 98.2; O2SAT 100
[2025-09-02 08:57] LABS: PHOSPHORUS 3.9 mg/dL (2.5-4.9)
[2025-09-02] MEDS ORDERED: MAGNESIUM OXIDE 400 MG TABLET PO ONE (10:15)
== END 2025-09-02 15:35 | disposition home or self-care (01) | DRG 885 ==
LOC: 3EI 15:54
PROVIDERS: ADMIT Psychiatry & Neurology Psychiatry; ATTEND Psychiatry & Neurology Psychiatry
PROC: GZHZZZZ Group Psychotherapy (ICD-10-PCS; principal; 2025-08-11)
PROC: GZ51ZZZ Individual Psychotherapy, Behavioral (ICD-10-PCS; 2025-08-11)
DX: F31.5 Bipolar disorder, current episode depressed, severe, with psychotic features (principal); D84.821 Immunodeficiency due to drugs; Z94.1 Heart transplant status; E87.1 Hypo-osmolality and hyponatremia; D84.9 Immunodeficiency, unspecified; I42.0 Dilated cardiomyopathy; I69.354 Hemiplegia and hemiparesis following cerebral infarction affecting left non-dominant side; Z94.0 Kidney transplant status; E11.9 Type 2 diabetes mellitus without complications; F10.20 Alcohol dependence, uncomplicated; I10 Essential (primary) hypertension; R45.851 Suicidal ideations; E87.6 Hypokalemia; R63.0 Anorexia; E83.42 Hypomagnesemia; E78.5 Hyperlipidemia, unspecified; G35.D Multiple sclerosis, unspecified; F41.1 Generalized anxiety disorder; Z79.60 Long term (current) use of unspecified immunomodulators and immunosuppressants; Z82.49 Family history of ischemic heart disease and other diseases of the circulatory system; Z91.148 Patient's other noncompliance with medication regimen for other reason; Z94.7 Corneal transplant status; Z68.27 Body mass index [BMI] 27.0-27.9, adult
CPT/HCPCS: 80048; 80053; 80061; 80197; 83036; 83735; 84100; 84443; 85025; 87081; J3420; J7507; J7517